=== PATIENT | female | born 1975 | race Hispanic/Latino ===

== ENCOUNTER → 2022-11-07 | Outpatient (CLI) | payer BC | END | disposition home or self-care (01) | LOC: SHCH 10:36 | PROVIDERS: ATTEND Internal Medicine Cardiovascular Disease | DX: I87.2 Venous insufficiency (chronic) (peripheral) (principal); Z98.890 Other specified postprocedural states | CPT/HCPCS: 93971 ==

== ENCOUNTER → 2023-04-03 | Outpatient (CLI) | payer BC | END | disposition home or self-care (01) | LOC: SHCH 11:22 | PROVIDERS: ATTEND Internal Medicine Cardiovascular Disease | DX: I87.2 Venous insufficiency (chronic) (peripheral) (principal); I82.441 Acute embolism and thrombosis of right tibial vein; Z98.890 Other specified postprocedural states | CPT/HCPCS: 93971 ==

== ENCOUNTER → 2023-04-19 | Outpatient (CLI) | payer BC | END | disposition home or self-care (01) | LOC: SHCH 14:50 | PROVIDERS: ATTEND Internal Medicine Cardiovascular Disease | DX: I87.2 Venous insufficiency (chronic) (peripheral) (principal); I87.1 Compression of vein; Z98.890 Other specified postprocedural states | CPT/HCPCS: 93970 ==